=== PATIENT | female | born 1955 | race Caucasian/White ===

== ENCOUNTER 2016-11-01 10:05 | Day surgery (SDC) | payer MEDICARE, MEDICAID ==
[~2016-11-01 10:05] MED LIST: RINGER'S SOLUTION,LACTATED 1,000 ML IV PRN
--- OUTSIDE RECORDS SUMMARY | 2016-11-01 10:09 | XMS REPORT | Continuity of Care Document ---
:1955 Author Organization [facility] ([facility]) Address [address] [place] [address] Phone [phone] Care Team Providers Name Role Phone Unavailable Primary Care Provider Unavailable Source Comments This disclosure is being made pursuant to the Care Everywhere program, applicable federal and state laws, and may not contain all informaitonavailable regarding this patient.[facility] ([facility]) Active Allergies and Adverse Reactions Not on File Current Medications Not on file Active Problems Not on file Social History Tobacco Use Types Packs/Day Years Used Date Never Assessed Plan of Care Health Maintenance Due Date Last Done Comments HCV Screening 1955 Hepatitis B Vaccine (1 of 3 - Primary Series) 1955 Tdap Vaccine 1965 Lipid Disorder Screening 1972 Td Vaccine 1972 Cervical Cancer Screening 1984 Mammogram 1994 Colonoscopy 09/09/2004 Zoster Vaccine 2014 Influenza Vaccine: Seasonal (#1) 03/08/2016 Results from Last 3 Months Not on file
[2016-11-01] MEDS ORDERED: RINGER'S SOLUTION,LACTATED 1,000 ML IV ONE (11:20)
[2016-11-01] MEDS ORDERED: RINGER'S SOLUTION,LACTATED 1,000 ML IV PRN (12:11)
[2016-11-01 13:03] VITALS: BP 109/57
--- NOTE | 2016-11-01 17:28 | OR ---
Operative Report - Dictated Report Narrative: OPERATIVE REPORT DATE OF OPERATION: 11/01/2016 PREOPERATIVE DIAGNOSIS: No prior colon studies. Diarrhea POSTOPERATIVE DIAGNOSIS: 1 cm cecal polyp (pathology pending) OPERATION: Colonoscopy with snare polypectomy in the cecum SURGEON: Nancy Conner MD ANESTHESIA: SAVITA Youssef CRNA INDICATIONS FOR PROCEDURE: The patient is a 61-year-old female referred by Dr. Moralez. The patient has had no previous colon studies. There is no family history of colon cancer. The patient has had recent loose stools. FINDINGS: 1 cm adenomatous polyp in the cecum (pathology pending). Very capacious colon, otherwise normal exam to the cecum. The saturation with sedation compatible with obstructive sleep apnea. NARRATIVE OF PROCEDURE: The patient was identified in the holding area, and prior to the administration of anesthetic, a multidisciplinary timeout was observed. With the patient in the left lateral position and after the administration of intravenous sedation, the perineum was inspected. There was no evidence of pilonidal disease or skin breakdown. The external appearance of the anus was normal. Sphincter tone was good. The flexible fiberoptic colonoscope was inserted into the rectum which was insufflated with air. The rectal mucosa and submucosal vascular pattern appeared normal, the prep was seen to be complete. The scope was advanced through the sigmoid colon, up the descending colon, and around the splenic flexure where the triangular haustral architecture of the transverse colon was seen. The scope was advanced across the transverse colon, around the hepatic flexure to the cecum, where the confluence of tenia and the ileocecal valve were identified. The mucosa at this level appeared normal. On a proximal ascending colon fold a 1 cm adenomatous polyp was encountered. This was amputated with cautery snare. The base of the polyp was then additionally treated with electrocautery until all polypoid tissue was seen to be destroyed and hemostatic. The scope was then slowly withdrawn in a circular fashion so that all aspects of colonic mucosa were inspected. The colon was capacious in character but relatively normal in course. The haustral architecture appeared well preserved throughout with no evidence of external compression. The mucosa and submucosal vascular pattern appeared normal, specifically there was no gross evidence to suggest colitis or inflammatory bowel disease and no AV malformations were seen. No florentino diverticular openings were demonstrated. No additional polyps were encountered. The scope was gradually withdrawn to the level of the rectum. As much insufflated air as possible was removed. The scope was withdrawn from the patient and the procedure terminated. The patient tolerated the anesthetic and procedure well without complication and was transferred back to the ambulatory surgery area awake and in stable condition. The patient remained stable throughout a period of postoperative observation. She denied abdominal discomfort, was able to tolerate by mouth intake, and was up without assistance. I shared the operative findings with the patient and she was given copies of the photographs which appear in the medical record. She was discharged home with instructions not to engage in hazardous activity today , but may resume normal activity tomorrow, and advance diet as tolerated. She is to continue those medications as listed in the history and physical exam. I made arrangements to contact her with the biopsy reports and will make additional recommendations for treatment and follow-up based upon those results. Reviewed and electronically signed
== END 2016-11-01 10:06 | disposition home or self-care (01) ==
LOC: AMB 10:05
PROVIDERS: ATTEND Surgery
PROC: 0DBH8ZX Excision of Cecum, Via Natural or Artificial Opening Endoscopic, Diagnostic (ICD-10-PCS; principal; 2016-11-01 11:30)
DX: Z12.11 Encounter for screening for malignant neoplasm of colon (principal); D12.0 Benign neoplasm of cecum; I10 Essential (primary) hypertension; E03.9 Hypothyroidism, unspecified; J45.909 Unspecified asthma, uncomplicated; F41.1 Generalized anxiety disorder; E55.9 Vitamin D deficiency, unspecified; F31.9 Bipolar disorder, unspecified; E66.01 Morbid (severe) obesity due to excess calories; Z68.44 Body mass index [BMI] 60.0-69.9, adult; Z87.891 Personal history of nicotine dependence

== ENCOUNTER 2017-08-14 13:11 | Emergency (ER) | payer MEDICARE, MEDICAID ==
[2017-08-14] MEDS ORDERED: ONDANSETRON HCL/PF 2 MG/ML VIAL ONE (13:32)
[2017-08-14] MEDS ORDERED: MORPHINE SULFATE 4 MG/ML SYRG ONE ×3 (13:32→15:15)
[2017-08-14] MEDS: MORPHINE SULFATE 4 MG/ML SYRG IV ONE ×3 (13:34→15:19)
[2017-08-14] MEDS: ONDANSETRON HCL/PF 2 MG/ML VIAL IV ONE (13:37)
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
[2017-08-14 15:09] VITALS: BP 152/65
== END 2017-08-14 15:05 | disposition short-term general hospital (02) ==
LOC: ER 13:11
DX: S72.341A Displaced spiral fracture of shaft of right femur, initial encounter for closed fracture (principal); W00.0XXA Fall on same level due to ice and snow, initial encounter; Y93.9 Activity, unspecified; Y92.007 Garden or yard of unspecified non-institutional (private) residence as the place of occurrence of the external cause; Z85.828 Personal history of other malignant neoplasm of skin
CPT/HCPCS: 73502; 73552; 96374; 96376; 99284; J2405